=== PATIENT | female | born 1960 | race Caucasian/White ===

== ENCOUNTER → 2017-12-15 14:28 | Outpatient (CLI) | payer MEDICARE, SELFPAY ==
--- NOTE | 2017-12-15 | DI.MG.S_ITS ---
BILATERAL DIGITAL SCREENING MAMMOGRAM 3D/2D WITH CAD: 12/15/2017 CLINICAL: Routine screening. Comparison is made to exams dated: 11/29/2016 mammogram, 10/22/2015 mammogram, and 10/13/2014 mammogram - [facility]. There are scattered fibroglandular elements in both breasts. Current study was also evaluated with a Computer Aided Detection (CAD) system. No significant masses, calcifications, or other findings are seen in either breast. There has been no significant interval change. IMPRESSION: NEGATIVE There is no mammographic evidence of malignancy. A 1 year screening mammogram is recommended. This exam was interpreted at Station ID: [id number]. NOTE: For mammograms, a report in lay terms will be sent to the patient. Approximately 15% of breast malignancies will not be visualized mammographically. In the management of a palpable breast mass, a negative mammogram must not discourage biopsy of a clinically suspicious lesion. Electronically Signed By: Con Smith M.D. ddp/bryce:12/15/2017 15:39:23 copy to: Ny Tamayo M.D., [facility] [employer], ph: [phone], fax: [phone] letter sent: Normal Exam ACR BI-RADS Category 1: Negative [id number]
== END ==
PROVIDERS: PCP Family Medicine; Visit Provider Internal Medicine
DX: Z12.31 Encounter for screening mammogram for malignant neoplasm of breast (principal)
CPT/HCPCS: 77063; 77067

== ENCOUNTER → 2017-12-25 13:17 | Outpatient (CLI) | payer MEDICARE, SELFPAY ==
[2017-12-25 14:41] LABS: Cholesterol 238 mg/dL (140-199); Glucose 91 mg/dL (70-100); HDL Cholesterol 52 mg/dL (40-60); LDL Cholesterol Calculated 163 mg/dL (<100); Triglycerides 116 mg/dL (35-150)
[2017-12-25 14:58] LABS: Free T3, Triiodothyronine Free 5.48 pg/mL (2.77-5.27); Free T4, Direct Thyroxine 1.26 ng/dL (0.78-2.19)
[2017-12-25 15:12] LABS: Thyroid Stimulating Hormone 1.07 uIU/mL (0.47-4.68)
== END ==
PROVIDERS: PCP Family Medicine; Visit Provider Family Medicine
DX: E78.5 Hyperlipidemia, unspecified (principal); Z13.1 Encounter for screening for diabetes mellitus; R79.89 Other specified abnormal findings of blood chemistry
CPT/HCPCS: 80061; 82947; 84439; 84443; 84481

== ENCOUNTER → 2019-01-22 16:15 | Outpatient (CLI) | payer MEDICARE, SELFPAY ==
[2019-01-22 17:53] LABS: Add Manual Diff / Slide Review NO; Basophils Absolute Auto 0 /uL (0-100); Basophils Percent Auto 0.5 % (0-2); Eosinophils Absolute Auto 100 /uL (0-450); Eosinophils Percent Auto 1.3 % (2-4); Hematocrit 41.8 % (36-46); Hemoglobin 14.1 g/dL (12.0-16.0); Lymphocytes Absolute Auto 2000 /uL (1100-4500); Lymphocytes Percent Auto 27.6 % (25-40); Mean Corpuscular HGB Conc 33.8 % (30-36); Mean Corpuscular Hemoglobin 30.5 PG (26-34); Mean Corpuscular Volume 90.3 fL (80-100); Monocytes Absolute Auto 500 /uL (0-900); Monocytes Percent Auto 6.6 % (3-14); Neutrophils Absolute Auto 4600 /uL (1500-7000); Platelet Count 338 X10^3/uL (150-400); Red Blood Cell Count 4.64 X10^6/uL (4.0-5.2); Red Cell Distribution Width 13.1 % (11.6-14.8); White Blood Cell Count 7.1 X10^3/uL (4.5-11.0)
[2019-01-22 18:09] LABS: Hemoglobin A1C% w Est Avg Glu 5.6 % (4.0-6.0)
[2019-01-22 18:24] LABS: Free T3, Triiodothyronine Free 3.83 pg/mL (2.77-5.27); Free T4, Direct Thyroxine 0.72 ng/dL (0.78-2.19)
[2019-01-22 18:37] LABS: Thyroid Stimulating Hormone 1.27 uIU/mL (0.47-4.68)
== END ==
PROVIDERS: Family Provider Naturopath; PCP Family Medicine; Visit Provider Physician Assistant Medical
DX: R20.2 Paresthesia of skin (principal)
CPT/HCPCS: 36415; 83036; 84439; 84443; 84481; 85025

== ENCOUNTER → 2019-06-13 14:51 | Outpatient (CLI) | payer MEDICARE, SELFPAY ==
[2019-06-13 15:55] LABS: Erythrocyte Sedimentation Rate 6 MM/HR (0-20)
[2019-06-13 16:40] LABS: Ferritin 50.1 ng/mL (11.1-264)
[2019-06-13 16:52] LABS: T4 Total Thyroxine 4.66 ug/dL (5.5-11.0)
[2019-06-13 17:05] LABS: Thyroid Stimulating Hormone 0.53 uIU/mL (0.47-4.68)
[2019-06-15 15:35] LABS: Triiodothyronine T3 Total 127 ng/dL (76-181)
== END ==
PROVIDERS: Family Provider Naturopath; PCP Family Medicine; Referring Provider Physician Assistant Medical; Visit Provider Physician Assistant Medical
DX: R20.2 Paresthesia of skin (principal)
CPT/HCPCS: 36415; 82728; 84436; 84443; 84480; 85651

== ENCOUNTER → 2019-07-04 14:58 | Outpatient (CLI) | payer MEDICARE, SELFPAY ==
--- NOTE | 2019-07-04 15:00 | DI.US.S_ITS ---
PROCEDURE: US THYROID INDICATIONS: ENLARGED THYROID TECHNIQUE: Real-time scanning was performed of the thyroid gland, with image documentation. COMPARISON: [facility], US, THYROID, 10/29/2013, 13:05. FINDINGS: Right: Thyroid lobe measures 3.7 x 0.9 x 1.0 cm, and is homogeneous in echotexture. Left: Thyroid lobe measures 3.0 x 0.9 x 0.6 cm, and is homogenous in echotexture. Isthmus: 1.1 mm thick. No nodules identified IMPRESSION: Normal examination. No thyroid nodules identified Dictated by: Monico Fritz M.D. on 07/04/2019 at 16:10 Approved by: Monico Fritz M.D. on 07/04/2019 at 16:13
== END ==
PROVIDERS: Family Provider Naturopath; PCP Family Medicine; Referring Provider Family Medicine; Visit Provider Family Medicine
DX: E04.9 Nontoxic goiter, unspecified (principal)
CPT/HCPCS: 76536

== ENCOUNTER → 2019-11-27 17:07 | Outpatient (CLI) | payer MEDICARE, SELFPAY ==
--- NOTE | 2019-11-27 17:09 | DI.MG.S_ITS ---
BILATERAL DIGITAL SCREENING MAMMOGRAM 3D/2D WITH CAD: 11/27/2019 CLINICAL: Routine screening. Comparison is made to exams dated: 12/15/2017 mammogram, 10/22/2015 mammogram, and 11/29/2016 mammogram - [facility]. There are scattered fibroglandular elements in both breasts. Current study was also evaluated with a Computer Aided Detection (CAD) system. No significant masses, calcifications, or other findings are seen in either breast. There has been no significant interval change. IMPRESSION: NEGATIVE There is no mammographic evidence of malignancy. A 1 year screening mammogram is recommended. This exam was interpreted at Station ID: [id number]. NOTE: For mammograms, a report in lay terms will be sent to the patient. Approximately 15% of breast malignancies will not be visualized mammographically. In the management of a palpable breast mass, a negative mammogram must not discourage biopsy of a clinically suspicious lesion. Electronically Signed By: Anjel disla/bryce:11/28/2019 07:57:52 copy to: Ny Tamayo M.D., [facility] [employer] [facility], ph: [phone], fax: [phone] letter sent: Normal Exam ACR BI-RADS Category 1: Negative [id number]
== END ==
PROVIDERS: Family Provider Naturopath; PCP Family Medicine; Referring Provider Family Medicine; Visit Provider Family Medicine
DX: Z12.31 Encounter for screening mammogram for malignant neoplasm of breast (principal)
CPT/HCPCS: 77063; 77067

== ENCOUNTER → 2019-12-19 11:50 | Outpatient (CLI) | payer MEDICARE, SELFPAY ==
[2019-12-19 13:25] LABS: Cholesterol 249 mg/dL (140-199); HDL Cholesterol 59 mg/dL (40-60); LDL Cholesterol Calculated 163 mg/dL (<100); Triglycerides 135 mg/dL (35-150)
== END ==
PROVIDERS: Family Provider Naturopath; PCP Family Medicine; Referring Provider Family Medicine; Visit Provider Family Medicine
DX: E78.5 Hyperlipidemia, unspecified (principal)
CPT/HCPCS: 36415; 80061

== ENCOUNTER → 2020-01-21 17:09 | Outpatient (CLI) | payer MEDICARE, SELFPAY ==
[2020-01-21 19:02] LABS: Progesterone, Total 0.58 ng/mL
[2020-01-21 19:16] LABS: Thyroid Stimulating Hormone 0.976 uIU/mL (0.47-4.68)
[2020-01-21 19:17] LABS: Estradiol, Total 19.8 pg/mL
[2020-01-21 20:20] LABS: Free T3, Triiodothyronine Free 3.43 pg/mL (2.77-5.27); Free T4, Direct Thyroxine 0.67 ng/dL (0.78-2.19)
[2020-01-27 09:47] LABS: Estrogen 51 pg/mL (.)
== END ==
PROVIDERS: Family Provider Naturopath; PCP Family Medicine; Referring Provider Family Medicine; Visit Provider Family Medicine
DX: Z78.0 Asymptomatic menopausal state (principal); E03.9 Hypothyroidism, unspecified
CPT/HCPCS: 36415; 82670; 82672; 84144; 84439; 84443; 84481

== ENCOUNTER → 2020-11-16 12:48 | Outpatient (CLI) | payer MEDICARE, SELFPAY ==
[2020-11-16 13:19] LABS: Cholesterol 288 mg/dL (140-199); HDL Cholesterol 55 mg/dL (40-60); LDL Cholesterol Calculated 202 mg/dL (<100); Triglycerides 157 mg/dL (35-150)
[2020-11-16 15:02] LABS: Vitamin D 25 Hydroxy (D3) 42.2 ng/mL (30.0-100.0)
[2020-11-24 16:09] LABS: Add Manual Diff / Slide Review NO; Basophils Absolute Auto 100 /uL (0-100); Basophils Percent Auto 0.8 % (0-2); Eosinophils Absolute Auto 100 /uL (0-450); Eosinophils Percent Auto 1.2 % (2-4); Hematocrit 40.5 % (36-46); Hemoglobin 13.4 g/dL (12.0-16.0); Lymphocytes Absolute Auto 2400 /uL (1100-4500); Lymphocytes Percent Auto 32.4 % (25-40); Mean Corpuscular Hemoglobin 30.2 PG (26-34); Mean Corpuscular Volume 91.7 fL (80-100); Monocytes Absolute Auto 700 /uL (0-900); Monocytes Percent Auto 8.9 % (3-14); Neutrophils Absolute Auto 4200 /uL (1500-7000); Neutrophils Percent Auto 56.7 % (50-75); Platelet Count 313 X10^3/uL (150-400); Red Blood Cell Count 4.42 X10^6/uL (4.0-5.2); Red Cell Distribution Width 13.3 % (11.6-14.8); White Blood Cell Count 7.3 X10^3/uL (4.5-11.0)
[2020-11-24 16:29] LABS: Alanine Aminotransferase 33 IU/L (<35); Albumin 4.4 g/dL (3.5-5.0); Albumin Globulin Ratio 1.4 (1.0-2.8); Alkaline Phosphatase 65 U/L (38-126); Aspartate Aminotransferase 42 IU/L (14-36); BUN Creatinine Ratio 41.3 (6-22); Bilirubin Total 0.2 mg/dL (0.2-1.3); Blood Urea Nitrogen 26 mg/dL (7-17); Calcium 9.6 mg/dL (8.4-10.2); Carbon Dioxide 26 mmol/L (22-32); Chloride 103 mmol/L (98-107); Estimated Glomerular Filt Rate > 60.0 mL/min (>60); Globulin 3.1 g/dL (1.7-4.1); Glucose 95 mg/dL (80-110); HEMOLYSIS < 15 (0-50); Potassium 4.3 mmol/L (3.4-5.1); Sodium 136 mmol/L (137-145); Total Protein 7.5 g/dL (6.3-8.2)
[2020-11-24 16:44] LABS: Free T3, Triiodothyronine Free 2.85 pg/mL (2.77-5.27); Free T4, Direct Thyroxine 0.76 ng/dL (0.78-2.19)
[2020-11-24 16:57] LABS: Thyroid Stimulating Hormone 4.15 uIU/mL (0.47-4.68)
== END ==
PROVIDERS: Family Provider Naturopath; PCP Family Medicine; Referring Provider Family Medicine; Visit Provider Family Medicine
DX: E55.9 Vitamin D deficiency, unspecified (principal); I10 Essential (primary) hypertension
CPT/HCPCS: 36415; 80053; 80061; 82306; 84439; 84443; 84481; 85025

== ENCOUNTER → 2021-07-05 11:57 | Outpatient (CLI) | payer MEDICARE, SELFPAY ==
[2021-07-05 14:18] LABS: Cholesterol 297 mg/dL (140-199); HDL Cholesterol 52 mg/dL (40-60); LDL Cholesterol Calculated 219 mg/dL (<100); Triglycerides 131 mg/dL (35-150)
[2021-07-05 15:22] LABS: Free T3, Triiodothyronine Free 3.33 pg/mL (2.77-5.27); Free T4, Direct Thyroxine 0.93 ng/dL (0.78-2.19)
[2021-07-05 15:36] LABS: Thyroid Stimulating Hormone 3.68 uIU/mL (0.47-4.68)
== END ==
PROVIDERS: Family Provider Naturopath; PCP Family Medicine; Referring Provider Family Medicine; Visit Provider Family Medicine
DX: E03.9 Hypothyroidism, unspecified (principal); E78.5 Hyperlipidemia, unspecified
CPT/HCPCS: 36415; 80061; 84439; 84443; 84481

== ENCOUNTER → 2021-11-22 12:39 | Outpatient (CLI) | payer MEDICARE, SELFPAY ==
[2021-11-22 14:01] LABS: Add Manual Diff / Slide Review NO; Basophils Absolute Auto 0 /uL (0-100); Basophils Percent Auto 0.9 % (0-2); Eosinophils Absolute Auto 100 /uL (0-450); Eosinophils Percent Auto 1.1 % (2-4); Hematocrit 39.6 % (36-46); Hemoglobin 13.6 g/dL (12.0-16.0); Lymphocytes Absolute Auto 1900 /uL (1100-4500); Lymphocytes Percent Auto 37.3 % (25-40); Mean Corpuscular HGB Conc 34.3 % (30-36); Mean Corpuscular Hemoglobin 30.4 PG (26-34); Mean Corpuscular Volume 88.6 fL (80-100); Monocytes Absolute Auto 400 /uL (0-900); Monocytes Percent Auto 7.8 % (3-14); Neutrophils Absolute Auto 2700 /uL (1500-7000); Neutrophils Percent Auto 52.9 % (50-75); Platelet Count 299 X10^3/uL (150-400); Red Blood Cell Count 4.47 X10^6/uL (4.0-5.2); Red Cell Distribution Width 13.4 % (11.6-14.8); White Blood Cell Count 5.1 X10^3/uL (4.5-11.0)
[2021-11-22 14:21] LABS: Alanine Aminotransferase 29 IU/L (<35); Albumin 4.4 g/dL (3.5-5.0); Albumin Globulin Ratio 1.5 (1.0-2.8); Alkaline Phosphatase 76 U/L (38-126); Aspartate Aminotransferase 40 IU/L (14-36); BUN Creatinine Ratio 25.6 (6-22); Bilirubin Total 0.3 mg/dL (0.2-1.3); Blood Urea Nitrogen 20 mg/dL (7-17); Calcium 9.1 mg/dL (8.4-10.2); Carbon Dioxide 29 mmol/L (22-32); Chloride 105 mmol/L (98-107); Cholesterol 240 mg/dL (140-199); Estimated Glomerular Filt Rate > 60 mL/min (>60); Glucose 93 mg/dL (80-110); HDL Cholesterol 48 mg/dL (40-60); HEMOLYSIS < 15 (0-50); LDL Cholesterol Calculated 165 mg/dL (<100); Potassium 4.1 mmol/L (3.4-5.1); Sodium 140 mmol/L (137-145); Total Protein 7.4 g/dL (6.3-8.2); Triglycerides 137 mg/dL (35-150)
[2021-11-22 14:37] LABS: T4 Total Thyroxine 5.64 ug/dL (5.5-11.0)
[2021-11-22 14:51] LABS: Thyroid Stimulating Hormone 4.61 uIU/mL (0.47-4.68)
[2021-11-23 06:25] LABS: Triiodothyronine T3 Total 86 ng/dL (71-180)
== END ==
PROVIDERS: Family Provider Naturopath; PCP Family Medicine; Referring Provider Family Medicine; Visit Provider Family Medicine
DX: E03.9 Hypothyroidism, unspecified (principal); E78.5 Hyperlipidemia, unspecified
CPT/HCPCS: 36415; 80053; 80061; 84436; 84443; 84480; 85025

== ENCOUNTER → 2023-03-15 13:44 | Outpatient (CLI) | payer MEDICARE, SELFPAY | PROVIDERS: Family Provider Naturopath; PCP Family Medicine; Visit Provider Physician Assistant | DX: R30.0 Dysuria (principal) | CPT/HCPCS: 87077; 87086; 87186 ==

== ENCOUNTER → 2023-03-31 11:06 | Outpatient (CLI) | payer MEDICARE, SELFPAY ==
[2023-03-31 11:33] LABS: Appearance Urine UA CLEAR; Bilirubin Urine UA NEGATIVE (NEGATIVE); Color Urine UA YELLOW; Glucose Urine UA NEGATIVE (Negative); Ketones Urine UA NEGATIVE (NEGATIVE); Leukocyte Esterase Urine UA TRACE (NEGATIVE); Nitrite Urine UA NEGATIVE (Negative); Occult Blood Urine UA NEGATIVE (Negative); Protein Urine UA NEGATIVE (Negative); Urobilinogen Urine UA 0.2 E.U./dL (0.2)
[2023-03-31 11:43] LABS: Bacteria Urine None Seen; Culture Indicated Urine Cult Not Indicated; RBC Urine None Seen (0-5/HPF); Squamous Epithelial Cell Urine 0-1 /HPF (0-5/HPF); WBC Urine None Seen (0-5/HPF)
== END ==
PROVIDERS: Family Provider Naturopath; PCP Family Medicine; Referring Provider Family Medicine; Visit Provider Family Medicine
DX: R30.9 Painful micturition, unspecified (principal)
CPT/HCPCS: 81001

== ENCOUNTER → 2023-04-04 15:20 | Outpatient (CLI) | payer MEDICARE, SELFPAY ==
[2023-04-06 14:45] LABS: Appearance Urine UA CLEAR; Bilirubin Urine UA NEGATIVE (NEGATIVE); Color Urine UA YELLOW; Glucose Urine UA NEGATIVE (Negative); Ketones Urine UA NEGATIVE (NEGATIVE); Leukocyte Esterase Urine UA NEGATIVE (NEGATIVE); Nitrite Urine UA NEGATIVE (Negative); Occult Blood Urine UA NEGATIVE (Negative); Protein Urine UA NEGATIVE (Negative); Urobilinogen Urine UA 0.2 E.U./dL (0.2)
[2023-04-06 14:47] LABS: pH Urine UA 5.5 (4.5-8.0)
[2023-04-06 15:04] LABS: Bacteria Urine None Seen; Culture Indicated Urine Cult Not Indicated; RBC Urine None Seen (0-5/HPF); Squamous Epithelial Cell Urine None Seen (0-5/HPF); WBC Urine None Seen (0-5/HPF)
== END ==
PROVIDERS: Family Provider Naturopath; PCP Family Medicine; Referring Provider Family Medicine; Visit Provider Family Medicine
DX: R30.0 Dysuria (principal)
CPT/HCPCS: 81001

== ENCOUNTER → 2023-04-06 13:01 | Outpatient (CLI) | payer MEDICARE, SELFPAY | LOC: LAB 06-06 13:01 | PROVIDERS: Family Provider Naturopath; PCP Family Medicine; Referring Provider Family Medicine; Visit Provider Family Medicine | DX: N39.0 Urinary tract infection, site not specified (principal) | CPT/HCPCS: 87086 ==

== ENCOUNTER → 2023-04-13 16:46 | Outpatient (CLI) | payer MEDICARE, SELFPAY ==
--- NOTE | 2023-04-13 16:49 | DI.US.S_ITS ---
PROCEDURE: US RENAL COMPLETE INDICATIONS: dysuria TECHNIQUE: Real-time scanning was performed of the kidneys and bladder, with image documentation. COMPARISON: None. FINDINGS: Kidneys: Kidneys are normal in size. Right kidney measures 10.7 cm long; left kidney measures 10.0 cm long. Right renal cortical thickness is 1.7 cm; left renal cortical thickness is 1.5 cm. Renal cortical echotexture is normal. No hydronephrosis or nephrolithiasis. No suspicious solid mass lesions. Bladder: Pre-void bladder volume is 50 mL. Post-void residual is 22 mL. Pre-void images demonstrate no intraluminal masses or stones. On pre-void images, bilateral ureteral jets are noted with color Doppler interrogation. (Of note, ureteral jets may not be detectable in up to 25% of cases due to insufficient differences in specific gravity between ureteral and bladder urine). Miscellaneous: There is increased hepatic echogenicity. IMPRESSION: 1. No hydronephrosis or nephrolithiasis. 2. Moderate postvoid residual. 3. Increased hepatic echogenicity noted likely related to fatty infiltration of the liver but other sources of hepatocellular disease cannot be excluded. Dictated by: Yas Banegas M.D. on 04/14/2023 at 9:26 Approved by: Yas Banegas M.D. on 04/14/2023 at 9:26
== END ==
PROVIDERS: Family Provider Naturopath; PCP Family Medicine; Referring Provider Family Medicine; Visit Provider Family Medicine
DX: R30.0 Dysuria (principal)
CPT/HCPCS: 76770

== ENCOUNTER → 2023-04-26 16:45 | Outpatient (CLI) | payer MEDICARE, SELFPAY ==
--- NOTE | 2023-04-26 16:47 | DI.US.S_ITS ---
PROCEDURE: US PELVIC COMPLETE INDICATIONS: PAIN TECHNIQUE: Real-time scanning was performed of the pelvic organs, with image documentation. Additional endovaginal scanning was necessary due to incomplete visualization of the adnexal and endometrial structures by transabdominal scanning. COMPARISON: None. FINDINGS: Uterus: Uterus is anteverted and normal in size at 6.3 x 4.5 x 2.9 cm. The myometrium is heterogeneous without focal intrauterine lesions/fibroids. The endometrium measures 2 mm combined thickness. Ovaries: Bilateral ovaries not well seen secondary to bowel gas. Other: No pathologic free abdominal or pelvic fluid. IMPRESSION: Heterogeneous uterine echotexture without focal intrauterine abnormalities. The bilateral ovaries were not well visualized on this examination. We strive to produce accurate, complete, and clear reports of imaging services. To assist us in improving patient care, this report was composed using standard report templates and voice recognition software. Therefore, it may contain abnormal punctuation, insertions and/or omissions. Occasional wrong-word or sound-alike substitutions may occur. Though we review the report and make efforts to correct it, we do recommend that the report be read carefully in proper context to recognize any text inaccuracies. Dictated by: Augusto Bliss M.D. on 04/27/2023 at 9:43 Approved by: Augusto Bliss M.D. on 04/27/2023 at 9:47
== END ==
PROVIDERS: Family Provider Naturopath; PCP Family Medicine; Referring Provider Family Medicine; Visit Provider Family Medicine
DX: R10.2 Pelvic and perineal pain (principal)
CPT/HCPCS: 76830; 76856

== ENCOUNTER → 2023-05-31 10:19 | Outpatient (CLI) | payer MEDICARE, SELFPAY ==
--- NOTE | 2023-05-31 10:20 | DI.MG.S_ITS ---
BILATERAL DIGITAL DIAGNOSTIC MAMMOGRAM 3D/2D: 05/31/2023 CLINICAL: Left breast pain, due for bilateral exam. Comparison is made to exams dated: 11/27/2019 mammogram, 12/15/2017 mammogram, and 11/29/2016 mammogram - [facility]. There are scattered areas of fibroglandular density in both breasts (category b / 25%-50% glandular tissue). No significant masses, calcifications, or other findings are seen in either breast. IMPRESSION: INCOMPLETE: NEEDS ADDITIONAL IMAGING EVALUATION There is no abnormality seen in the left breast to correspond with the area of clinical concern and pain indicated by square marker at 6 o'clock in the anterior depth, however, ultrasound is recommended for further evaluation and is scheduled to immediately follow this examination. Based on the Tyrer Cuzick model (a risk assessment model) the patient's lifetime risk is 5.7% and her 10 year risk is 2.5%. According to the ACR, ACS, and NCCN guidelines, an annual breast MRI exam along with mammogram is recommended if the patient's lifetime risk is 20% or greater. This exam was interpreted at Station ID: [id number]. NOTE: For mammograms, a report in lay terms will be sent to the patient. Approximately 15% of breast malignancies will not be visualized mammographically. In the management of a palpable breast mass, a negative mammogram must not discourage biopsy of a clinically suspicious lesion. Electronically Signed By: Augusto Bliss M.D. aty/:05/31/2023 11:04:18 copy to: Ny Tamayo M.D., [facility] [employer], ph: [phone], fax: [phone] ACR BI-RADS Category 0: Incomplete [id number]
--- NOTE | 2023-05-31 10:20 | DI.US.S_ITS ---
ULTRASOUND OF LEFT BREAST: 05/31/2023 CLINICAL: Focal left breast pain. Comparison is made to exams dated: 05/31/2023 mammogram, 11/27/2019 mammogram, and 12/15/2017 mammogram - [facility]. Color flow and real-time ultrasound of the left breast were performed. Moody scale images of the real-time examination were reviewed. No significant abnormalities were seen sonographically in the left breast. IMPRESSION: NEGATIVE There is no sonographic evidence of malignancy. There is no abnormality seen in the left breast to correspond with the area of clinical concern and pain in the lower inner quadrant, however, recommend clinical follow up for persistent or worsening symptoms, or development of any clinically suspicious findings. A 1 year screening mammogram is recommended. Findings and recommendations were conveyed to the patient during today's evaluation. This exam was interpreted at Station ID: [id number]. Electronically Signed By: Augusto Bliss M.D. aty/:05/31/2023 16:28:17 copy to: yN Tamayo M.D., [facility] [employer], ph: [phone], fax: [phone] letter sent: Clinical Evaluation Ultrasound BI-RADS: 1 Negative
== END ==
PROVIDERS: Family Provider Naturopath; PCP Family Medicine; Referring Provider Family Medicine; Visit Provider Family Medicine
DX: R92.2 Inconclusive mammogram (principal); N64.4 Mastodynia; R92.323 Mammographic fibroglandular density, bilateral breasts
CPT/HCPCS: 76642; 77066; G0279

== ENCOUNTER → 2023-06-05 15:07 | Outpatient (CLI) | payer MEDICARE, SELFPAY ==
[2023-06-05 16:28] LABS: Free T3, Triiodothyronine Free 3.72 pg/mL (2.77-5.27); Free T4, Direct Thyroxine 1.15 ng/dL (0.78-2.19)
[2023-06-05 16:41] LABS: Thyroid Stimulating Hormone 3.27 uIU/mL (0.47-4.68)
== END ==
PROVIDERS: Family Provider Naturopath; PCP Family Medicine; Referring Provider Family Medicine; Visit Provider Family Medicine
DX: E03.9 Hypothyroidism, unspecified (principal)
CPT/HCPCS: 36415; 84439; 84443; 84481

== ENCOUNTER → 2023-06-07 14:39 | Outpatient (CLI) | payer MEDICARE, SELFPAY | PROVIDERS: Family Provider Naturopath; PCP Family Medicine; Visit Provider Family Medicine | DX: R30.0 Dysuria (principal) | CPT/HCPCS: 87086 ==

== ENCOUNTER → 2023-06-14 16:28 | Outpatient (CLI) | payer MEDICARE, SELFPAY ==
[2023-06-14 16:58] LABS: Add Manual Diff / Slide Review NO; Basophils Absolute Auto 100 /uL (0-100); Basophils Percent Auto 0.9 % (0-2); Eosinophils Absolute Auto 0 /uL (0-450); Eosinophils Percent Auto 0.4 % (2-4); Hematocrit 41.7 % (36-46); Hemoglobin 14.2 g/dL (12.0-16.0); Lymphocytes Absolute Auto 2200 /uL (1100-4500); Lymphocytes Percent Auto 24.9 % (25-40); Mean Corpuscular HGB Conc 33.9 % (30-36); Mean Corpuscular Hemoglobin 30.1 PG (26-34); Mean Corpuscular Volume 88.6 fL (80-100); Monocytes Absolute Auto 600 /uL (0-900); Monocytes Percent Auto 6.7 % (3-14); Neutrophils Absolute Auto 5900 /uL (1500-7000); Neutrophils Percent Auto 67.1 % (50-75); Platelet Count 370 X10^3/uL (150-400); Red Blood Cell Count 4.71 X10^6/uL (4.0-5.2); Red Cell Distribution Width 13.1 % (11.6-14.8); White Blood Cell Count 8.8 X10^3/uL (4.5-11.0)
[2023-06-14 17:07] LABS: Hemoglobin A1C% w Est Avg Glu 5.9 % (4.0-6.0)
== END ==
PROVIDERS: Family Provider Naturopath; PCP Family Medicine; Referring Provider Family Medicine; Visit Provider Family Medicine
DX: E03.9 Hypothyroidism, unspecified (principal); R73.9 Hyperglycemia, unspecified; E78.5 Hyperlipidemia, unspecified; F41.9 Anxiety disorder, unspecified; D64.9 Anemia, unspecified
CPT/HCPCS: 36415; 83036; 85025

== ENCOUNTER → 2023-06-15 13:16 | Outpatient (CLI) | payer MEDICARE, SELFPAY ==
--- NOTE | 2023-06-15 13:17 | DI.US.S_ITS ---
PROCEDURE: US AXILLARY ONLY LT COMPARISON: None. INDICATIONS: pain FINDINGS: IMPRESSION: Dictated by: Rasheed Peace M.D. on 06/15/2023 at 14:08 Approved by: Rasheed Peace M.D. on 06/15/2023 at 14:09
--- NOTE | 2023-06-15 13:43 | DI.US.S_ITS ---
Patient Name: CLAUDIA GIBBS date: 1960 Sex: F Attending Physician: Roni Indications: Date: 06/15/2023 14:09 At the request of: [place] PERALTA Procedure: US axillary only lt ULTRASOUND OF LEFT AXILLA: 06/15/2023 CLINICAL: Diffuse left axilla pain. No prior exams were available for comparison. Color flow and real-time ultrasound of the left axilla were performed. Moody scale images of the real-time examination were reviewed. No significant abnormalities were seen sonographically in the left axilla. IMPRESSION: NEGATIVE There is no sonographic evidence of malignancy. There is no abnormality seen in the left axilla to correspond with the area of clinical concern, however, clinical correlation and clinical followup are recommended. Return to annual mammogram screening schedule is recommended. This exam was interpreted at Station ID: [id number]. Electronically Signed By: Rasheed Peace M.D. lc/:06/15/2023 14:09:09 copy to: Ny Perlata M.D., [facility] [employer], ph: [phone], fax: letter sent: Clinical Evaluation Ultrasound BI-RADS: 1 Negative
== END ==
PROVIDERS: Family Provider Naturopath; PCP Family Medicine; Referring Provider Family Medicine; Visit Provider Family Medicine
DX: M79.622 Pain in left upper arm (principal)
CPT/HCPCS: 76882

== ENCOUNTER 2023-06-22 21:02 | Emergency (ER) | payer MEDICARE, SELFPAY ==
[2023-06-22] VITALS (13 sets, daily range): BP systolic 169–263; BP diastolic 71–103; PULSE 85–122; RESP 14–29; TEMP 36.8; O2SAT 97–99; BMI 25.9
--- NOTE | 2023-06-22 21:17 | DI.RAD.S_ITS ---
PROCEDURE: XR CHEST 1V INDICATIONS: chest pain TECHNIQUE: One view of the chest was acquired. COMPARISON: None. FINDINGS: Surgical changes and devices: None. Lungs and pleura: Lungs are clear. No pleural effusions or pneumothorax. Mediastinum: Mediastinal contours appear normal. Heart size is normal. Bones and chest wall: No suspicious bony lesions. Overlying soft tissues appear unremarkable. IMPRESSION: No acute cardiopulmonary abnormality is seen. Dictated by: Augusto Bliss M.D. on 06/22/2023 at 22:53 Approved by: Augusto Bliss M.D. on 06/22/2023 at 22:53
[2023-06-22 21:32] LABS: Add Manual Diff / Slide Review NO; Basophils Absolute Auto 100 /uL (0-100); Basophils Percent Auto 0.6 % (0-2); Eosinophils Absolute Auto 100 /uL (0-450); Eosinophils Percent Auto 0.6 % (2-4); Hematocrit 40.7 % (36-46); Hemoglobin 13.8 g/dL (12.0-16.0); Lymphocytes Absolute Auto 3800 /uL (1100-4500); Lymphocytes Percent Auto 40.5 % (25-40); Mean Corpuscular HGB Conc 33.9 % (30-36); Mean Corpuscular Hemoglobin 30.3 PG (26-34); Mean Corpuscular Volume 89.3 fL (80-100); Monocytes Absolute Auto 800 /uL (0-900); Monocytes Percent Auto 8.5 % (3-14); Neutrophils Absolute Auto 4700 /uL (1500-7000); Neutrophils Percent Auto 49.8 % (50-75); Platelet Count 357 X10^3/uL (150-400); Red Blood Cell Count 4.56 X10^6/uL (4.0-5.2); Red Cell Distribution Width 13.7 % (11.6-14.8); White Blood Cell Count 9.4 X10^3/uL (4.5-11.0)
[2023-06-22 21:42] LABS: Prothrombin Time 11.3 SECONDS (9.4-12.5)
[2023-06-22] MEDS: HYDRALAZINE 20 MG/ML VIAL IV (21:42)
[2023-06-22 21:44] LABS: PTT Partial Thromboplastin Tim 34 SECONDS (25.1-36.5)
[2023-06-22 21:55] LABS: NT-proBNP (BNP-Adult 18+) < 20 pg/mL (<125)
--- NOTE | 2023-06-22 22:03 | ED_ITS ---
HPI - Chest Pain General Chief Complaint: Chest Pain Stated Complaint: wants something checked out Time Seen by Provider: 06/22/23 21:20 Source: patient Mode of arrival: Ambulatory History of Present Illness HPI narrative: 63-year-old female presents for evaluation of left neck veins swelling. Patient states that she feels like her neck veins have been dilated and this evening she noticed a stinging pain in the left side of her neck that radiated down words. Denies any chest pain or shortness of breath. Denies headache, blurred vision, numbness, weakness, arm pain. Patient noted to be quite hypertensive in the emergency department. She states that her blood pressure is usually well controlled, but because of her anxiety she is normally very hypertensive when she goes to the doctors. Related Data Home Medications Medication Instructions Recorded Confirmed [L theanine] ##0 12/14/16 06/07/23 [fiberpro] ##0 12/14/16 06/07/23 [ionix supreme] ##0 12/14/16 06/07/23 [isaflush] ##0 12/14/16 06/07/23 [probio] ##0 12/14/16 06/07/23 [protandim] ##0 12/14/16 06/07/23 Buffered Vitamin C PO 12/12/19 06/07/23 Collagen Peptides PO 12/12/19 06/07/23 Prebiotic PO 12/12/19 06/07/23 diclofenac sodium 50 mg 50 mg PO BID 12/12/19 06/07/23 tablet,delayed release cholecalciferol (vitamin D3) 100 2,000 unit PO #0 caps 01/21/20 06/07/23 mcg (4,000 unit) capsule (Vitamin D3) Previous Rx's Medication Instructions Recorded disabled parking permit #1 ea 03/12/20 Allergies Allergy/AdvReac Type Severity Reaction Status Date / Time adhesive Allergy Mild LOCAL RASH Verified 06/07/23 13:36 amoxicillin Allergy Mild RASH Verified 06/07/23 13:36 Penicillins Allergy Mild Rash Verified 06/07/23 13:36 shellfish derived Allergy Unknown Verified 06/07/23 13:36 hydralazine AdvReac Mild Anxiety Verified 06/23/23 02:33 simvastatin AdvReac Mild MYALGIA Verified 06/07/23 13:36 epinephrine [EPINEPHRINE] AdvReac Unknown breathing Verified 06/07/23 13:36 difficulties & palpitations Review of Systems Review of Systems Narrative: Negative except as noted above Patient History Medical History Prediabetes Chronic back pain Hyperlipidemia Anxiety Depression Postmenopause Surgical History Status post epidural steroid injection (09/2015) Family History Father Hyperlipidemia Coronary artery disease Mother Diabetes mellitus Hyperlipidemia Coronary artery disease Family/Other Colon cancer Sister Hyperlipidemia Sister Hyperlipidemia Sister Hyperlipidemia Social History marital status: household members: spouse occupational status: unemployed Smoking Status: Never smoker Smoking Status: Never smoker Substance Use Type: does not use Exam Initial Vital Signs Initial Vital Signs: Vital Signs Temperature 98.3 F 06/22/23 21:05 Pulse Rate 98 H 06/22/23 21:05 Respiratory Rate 16 06/22/23 21:05 Blood Pressure 263/103 H 06/22/23 21:05 Pulse Oximetry 98 06/22/23 21:05 Oxygen Delivery Method Room Air 06/22/23 21:05 Const: Awake, alert, no acute distress, nontoxic appearing Neck: visible jugular vein, no palpable cord Cardiac: regular rate, regular rhythm RESP: unlabored, clear bilaterally, no wheezing GI: Atraumatic, soft, nontender Skin: Warm, Dry, intact, normal color Neuro: AO x3, CN II-XII grossly intact, moves all extremities Psych: anxious, mood normal, not suicidal, not homicidal Course Orders Ordered: ED Orders 06/22/23 21:17 XR chest 1V Stat EKG-12 Lead Stat 06/22/23 21:25 BNP [NT-proBNP (BNP-Adult 18+)] Stat Complete Blood Count AUTO DIFF Stat PTT Partial Thromboplastin Chris Stat Prothrombin Time INR Stat 06/22/23 22:04 Comprehensive Metabolic Panel Stat Lipase Stat Magnesium Stat Troponin & CK Cardiac Panel Stat 06/22/23 22:33 US soft tissue head and neck Stat Discontinued Medications Diphenhydramine HCl (Diphenhydramine 25 Mg Tablet) 25 mg PO NOW ONE Stop: 06/22/23 22:03 Last Admin: 06/22/23 22:04 Dose: 25 mg Documented By: CELIO Hydralazine HCl (Hydralazine 20 Mg/Ml Vial) 20 mg IV NOW ONE Stop: 06/22/23 21:22 Last Admin: 06/22/23 21:42 Dose: 20 mg Documented By: CELIO Vital Signs Vital signs: Vital Signs - 8 hr 06/22/23 21:05 06/22/23 21:20 06/22/23 21:30 Temperature 98.3 F Pulse Rate 98 H 91 H 91 H Respiratory Rate 16 26 H 29 H Blood Pressure 263/103 H Pulse Oximetry 98 99 98 Oxygen Delivery Method Room Air 06/22/23 21:38 06/22/23 21:38 06/22/23 21:42 Temperature Pulse Rate 88 85 Respiratory Rate 24 Blood Pressure 211/98 H 211/98 H Pulse Oximetry 97 Oxygen Delivery Method Room Air 06/22/23 21:49 06/22/23 21:49 06/22/23 21:58 Temperature Pulse Rate 96 H Respiratory Rate 16 Blood Pressure 216/92 H 200/87 H Pulse Oximetry 98 Oxygen Delivery Method 06/22/23 21:58 06/22/23 22:00 06/22/23 22:06 Temperature Pulse Rate 119 H 118 H Respiratory Rate 22 26 H Blood Pressure 203/83 H Pulse Oximetry 98 98 Oxygen Delivery Method 06/22/23 22:06 06/22/23 22:30 06/22/23 22:30 Temperature Pulse Rate 122 H 103 H 103 H Respiratory Rate 23 22 Blood Pressure 169/71 H Pulse Oximetry 98 99 Oxygen Delivery Method 06/22/23 22:31 06/22/23 22:31 06/22/23 23:00 Temperature Pulse Rate 104 H Respiratory Rate 24 Blood Pressure 169/71 H 177/78 H Pulse Oximetry 98 Oxygen Delivery Method 06/22/23 23:00 06/22/23 23:30 06/22/23 23:30 Temperature Pulse Rate 103 H 120 H Respiratory Rate 14 21 Blood Pressure 185/83 H Pulse Oximetry 98 97 Oxygen Delivery Method MDM - Chest Pain Lab Data 06/22/23 21:25 06/22/23 22:04 Labs: Lab Results 06/22/23 06/22/23 Range/Units 21:25 22:04 WBC 9.4 (4.5-11.0) X10^3/uL RBC 4.56 (4.0-5.2) X10^6/uL Hgb 13.8 (12.0-16.0) g/dL Hct 40.7 (36-46) % MCV 89.3 (80-100) fL MCH 30.3 (26-34) PG MCHC 33.9 (30-36) % RDW 13.7 (11.6-14.8) % Plt Count 357 (150-400) X10^3/uL Neut % (Auto) 49.8 L (50-75) % Lymph % (Auto) 40.5 H (25-40) % [place] % (Auto) 8.5 (3-14) % Eos % (Auto) 0.6 L (2-4) % Baso % (Auto) 0.6 (0-2) % Neut # (Auto) 4700 (1492-3618) /uL Lymph # (Auto) 3800 (2388-0137) /uL [place] # (Auto) 800 (0-900) /uL Eos # (Auto) 100 (0-450) /uL Baso # (Auto) 100 (0-100) /uL PT 11.3 (9.4-12.5) SECONDS INR 1.0 (0.9-1.3) APTT 34 (25.1-36.5) SECONDS Sodium 137 (137-145) mmol/L Potassium 4.1 (3.4-5.1) mmol/L Chloride 103 (98-107) mmol/L Carbon Dioxide 24 (22-32) mmol/L BUN 22 H (7-17) mg/dL Creatinine 0.66 (0.52-1.04) mg/dL Estimated GFR > 60 (>60) mL/min BUN/Creatinine Ratio 33.3 H (6-22) Glucose 121 H (80-110) mg/dL Calcium 10.0 (8.4-10.2) mg/dL Magnesium 2.2 (1.6-2.3) mg/dL Total Bilirubin 0.5 (0.2-1.3) mg/dL AST 45 H (14-36) IU/L ALT 33 (<35) IU/L Alkaline Phosphatase 75 (38-126) U/L Total Creatine Kinase 192 H (30-135) U/L Troponin I < 0.012 (0.01-0.034) ng/mL NT-Pro-B Natriuret Pep < 20 (<125) pg/mL Total Protein 7.8 (6.3-8.2) g/dL Albumin 4.6 (3.5-5.0) g/dL Globulin 3.2 (1.7-4.1) g/dL Albumin/Globulin Ratio 1.4 (1.0-2.8) Lipase 150 (23-300) U/L ECG Data Interpretation: Sinus tachycardia, rate 110 beats per minute. Normal NV, no ST T wave changes, no STEMI MDM Narrative Medical decision making narrative: Patient presenting for what she feels is an abnormality in her jugular vein. She does have a visible jugular vein on the left-hand side, however it is soft, there is no cord palpable, it is easily collapsible. Patient is profoundly hypertensive on arrival and this could be contributing to her visible jugular vein. Laboratory work is reviewed, unremarkable. Troponin negative. Chest x-ray shows no acute findings and no evidence upper lung mass. Ultrasound of the neck shows no acute findings. Patient's blood pressure decreased with hydralazine and jugular vein is less prominent. Patient is extremely anxious, about what could possibly be causing her symptoms and is also concerned that an incident with left-sided breast pain that she had several weeks ago. I strongly encouraged the patient to follow up with her primary care physician for further investigation of her assortment of symptoms. ED return precautions discussed at bedside. Patient expressed understanding of the plan and is in agreement at this time. All questions answered at the time of discharge. Discharge Plan Departure Patient Disposition: Home Clinical Impression: Neck pain Instructions: DI for Neck Pain Activity Restrictions/Additional Instructions: Your laboratory work and imaging today was normal. There were no visualized abnormalities on your ultrasound or your chest x-ray. Your laboratory work today was normal. I recommend close follow up with your primary care physician for further investigation of your neck pain if you continue to experience symptoms. Prescriptions: No Action [probio] Qty: 0 [protandim] Qty: 0 [L theanine] Qty: 0 [fiberpro] Qty: 0 [isaflush] Qty: 0 [ionix supreme] Qty: 0 diclofenac sodium 50 mg tablet,delayed release (DR/EC) 50 mg PO BID Buffered Vitamin C PO Prebiotic PO Collagen Peptides PO Vitamin D3 100 mcg (4,000 unit) capsule 2,000 unit PO Qty: 0 (DME) disabled parking permit See Rx Instructions .ROUTE .MEDSUPPLY Qty: 1 0RF Rx Instructions: My patient cannot walk 200 feet without stopping to rest or must use assistive device. Walking is severely limited due to arthritic, neurological or orthopedic condition. Uses portable oxygen or walking restricted by lung disease Referrals: Ny Tamayo MD [Primary Care Provider] - Stand Alone Forms: Patient Portal/API
[2023-06-22] MEDS: diphenhydrAMINE 25 MG TABLET PO (22:04)
--- NOTE | 2023-06-22 22:11 | PC.NURSE ---
Noticeable dilation of left jugular vein. Pt states it has been happening for a few days. States she is having burning down her neck into her supraclavicular area. Pt denies any trauma or exercise.
--- NOTE | 2023-06-22 22:13 | PC.NURSE ---
Pt is very anxious. States she is very sensitive to medications and feels like she is having an allergic reaction to the hydralazine given IV. Pt states she feels lightheaded, her heart is beating so fast, and she feels worse than before. Pt is reassured that the medication is not working so effectively that her blood pressure is not dropping too swiftly d/t her blood pressure not changing at all. Pt is now tachycardic from 90 to 118. Pt is swaying in bed. Staff stayed with pt at bedside as she would not get all the way in bed d/t back pain. Pt had some splotchy red areas to right side of neck and chest. Also had some redness to left posterior arm prior to arrival. Pt also has a amanda on left neck that appears to be a bruise but is not.
--- NOTE | 2023-06-22 22:33 | DI.US.S_ITS ---
PROCEDURE: US SOFT TISSUE HEAD AND NECK INDICATIONS: neck vein distension, L TECHNIQUE: Real-time scanning was performed of the neck region of interest, with image documentation. COMPARISON: None. FINDINGS: Multiple grayscale and color Doppler images of the neck were acquired over the areas of patient concern. The left internal jugular vein and proximal left subclavian vein appear normal. These are normally compressible without intraluminal filling defects. Normal waveforms. No lymphadenopathy on the left. Visualized parotid gland and submandibular gland appear normal. Comparison right neck also appears normal sonographically. IMPRESSION: Normal sonographic evaluation of the neck. Dictated by: Augusto Bliss M.D. on 06/22/2023 at 23:58 Approved by: Augusto Bliss M.D. on 06/23/2023 at 0:00
[2023-06-22 22:47] LABS: Alanine Aminotransferase 33 IU/L (<35); Albumin 4.6 g/dL (3.5-5.0); Albumin Globulin Ratio 1.4 (1.0-2.8); Alkaline Phosphatase 75 U/L (38-126); Aspartate Aminotransferase 45 IU/L (14-36); BUN Creatinine Ratio 33.3 (6-22); Bilirubin Total 0.5 mg/dL (0.2-1.3); Blood Urea Nitrogen 22 mg/dL (7-17); Carbon Dioxide 24 mmol/L (22-32); Chloride 103 mmol/L (98-107); Creatine Kinase 192 U/L (30-135); Estimated Glomerular Filt Rate > 60 mL/min (>60); Globulin 3.2 g/dL (1.7-4.1); Glucose 121 mg/dL (80-110); HEMOLYSIS 38 (0-50); Lipase 150 U/L (23-300); Magnesium 2.2 mg/dL (1.6-2.3); Potassium 4.1 mmol/L (3.4-5.1); Sodium 137 mmol/L (137-145); Total Protein 7.8 g/dL (6.3-8.2)
[2023-06-22 22:59] LABS: Troponin I < 0.012 ng/mL (0.01-0.034)
== END 2023-06-23 00:31 | disposition home or self-care (01) ==
PROVIDERS: Emergency Provider Emergency Medicine; Family Provider Naturopath; PCP Family Medicine
DX: M54.2 Cervicalgia (principal); R00.0 Tachycardia, unspecified; I10 Essential (primary) hypertension
CPT/HCPCS: 36415; 71045; 76536; 80053; 82550; 83690; 83735; 83880; 84484; 85025; 85610; 85730; 93005; 96374; 99284; J0360

== ENCOUNTER → 2023-07-14 14:37 | Outpatient (CLI) | payer MEDICARE, SELFPAY ==
[2023-07-17 14:32] LABS: Candida species Negative (Negative); Gardnerella vaginalis Negative (Negative); Trichomoas vaginalis Negative (Negative)
== END ==
PROVIDERS: PCP Family Medicine; Visit Provider Obstetrics & Gynecology
DX: N94.9 Unspecified condition associated with female genital organs and menstrual cycle (principal); N89.8 Other specified noninflammatory disorders of vagina
CPT/HCPCS: 87480; 87510; 87660

== ENCOUNTER → 2023-08-06 15:52 | Outpatient (CLI) | payer MEDICARE, SELFPAY ==
[2023-08-06 16:08] LABS: Appearance Urine UA CLEAR; Bilirubin Urine UA NEGATIVE (NEGATIVE); Color Urine UA YELLOW; Glucose Urine UA NEGATIVE (Negative); Ketones Urine UA NEGATIVE (NEGATIVE); Leukocyte Esterase Urine UA NEGATIVE (NEGATIVE); Nitrite Urine UA NEGATIVE (Negative); Occult Blood Urine UA NEGATIVE (Negative); Protein Urine UA NEGATIVE (Negative); Specific Gravity Urine UA 1.015 (1.000-1.035); Urobilinogen Urine UA 0.2 E.U./dL (0.2)
[2023-08-06 16:30] LABS: Bacteria Urine None Seen; Culture Indicated Urine Cult Not Indicated; RBC Urine None Seen (0-5/HPF); Squamous Epithelial Cell Urine 1-5 /HPF (0-5/HPF); Urine Volume 10mL (spun); WBC Urine None Seen (0-5/HPF)
== END ==
PROVIDERS: PCP Family Medicine; Visit Provider Physician Assistant Medical
DX: R39.9 Unspecified symptoms and signs involving the genitourinary system (principal)
CPT/HCPCS: 81001

== ENCOUNTER → 2023-09-13 16:48 | Outpatient (CLI) | payer MEDICARE, SELFPAY | PROVIDERS: PCP Family Medicine; Visit Provider Nurse Practitioner Family | DX: J02.9 Acute pharyngitis, unspecified (principal) | CPT/HCPCS: 87070 ==

== ENCOUNTER → 2023-11-27 16:02 | Outpatient (CLI) | payer MEDICARE, SELFPAY ==
[2023-11-27 17:32] LABS: Add Manual Diff / Slide Review NO; Basophils Absolute Auto 0 /uL (0-100); Basophils Percent Auto 0.5 % (0-2); Eosinophils Absolute Auto 100 /uL (0-450); Eosinophils Percent Auto 1.2 % (2-4); Hematocrit 38.3 % (36-46); Hemoglobin 13.2 g/dL (12.0-16.0); Lymphocytes Absolute Auto 2800 /uL (1100-4500); Lymphocytes Percent Auto 37.3 % (25-40); Mean Corpuscular HGB Conc 34.5 % (30-36); Mean Corpuscular Hemoglobin 31.2 PG (26-34); Mean Corpuscular Volume 90.4 fL (80-100); Monocytes Absolute Auto 700 /uL (0-900); Monocytes Percent Auto 8.8 % (3-14); Neutrophils Absolute Auto 3900 /uL (1500-7000); Neutrophils Percent Auto 52.2 % (50-75); Platelet Count 330 X10^3/uL (150-400); Red Blood Cell Count 4.23 X10^6/uL (4.0-5.2); Red Cell Distribution Width 12.8 % (11.6-14.8); White Blood Cell Count 7.5 X10^3/uL (4.5-11.0)
[2023-11-27 17:46] LABS: HEMOLYSIS < 15 (0-50); Iron 71 ug/dL (37-170)
[2023-11-27 17:54] LABS: Hemoglobin A1C% w Est Avg Glu 5.9 % (4.0-6.0)
[2023-11-27 17:57] LABS: Percent Iron Saturation 20 % (15-50); Total Iron Binding Capacity 355 ug/dL (265-497); Transferrin 278 mg/dL (206-381)
[2023-11-27 18:17] LABS: TSH w/ Reflex to FT4 2.65 uIU/mL (0.47-4.68)
[2023-11-27 18:56] LABS: Folate > 20.0 ng/mL (2.76-20.0); Vitamin B12 883 pg/mL (239-931)
== END ==
PROVIDERS: PCP Family Medicine; Referring Provider Family Medicine; Visit Provider Family Medicine
DX: E03.9 Hypothyroidism, unspecified (principal); R73.03 Prediabetes; Z79.899 Other long term (current) drug therapy; K13.79 Other lesions of oral mucosa; R20.8 Other disturbances of skin sensation
CPT/HCPCS: 36415; 82542; 82607; 82746; 83036; 83540; 83550; 84443; 85025